=== PATIENT | female | born 1990 | race Caucasian/White ===

== ENCOUNTER 2020-12-04 11:03 | Emergency (ER) | payer OTHER ==
[~2020-12-04] VITALS: Ht 157.5 cm; Wt 59.1 kg
[2020-12-04 11:14] VITALS: BP 121/71
[2020-12-04] MEDS ORDERED: MUPI22OI2 TP (11:38)
--- NOTE | 2020-12-04 11:38 | PHYS DOC ---
Past History Additional Past Medical Histor: tetralogy of fallot, cleft pallet Past Surgical History: Other Additional Past Surgical Histo: cleft pallet, pulmonary valve, liver adenoma Smoking: Non-smoker Alcohol Use: Rarely Drug Use: None General Adult EDM: Chief Complaint: BURN/SMOKE INHALATION HPI: HPI: 30-year-old female presents with report of burn to left distal wrist with large blister which occurred last night after patient got some hot cheese on it from a pizza as she was microwaving. Patient reports immediately getting the cheese removed and placing the wrist wrist under some cold water. Patient reports this morning woke up with large blister and significant pain. Patient reports last tetanus booster greater than 5 years ago. Review of Systems: Review of Systems: Constitutional: Denies fever or chills Musculoskeletal: Reports pain to left anterior wrist Integument: Reports left wrist anterior burn with blistering Neurologic: Denies headache Complete systems were reviewed and found to be within normal limits, except as documented in this note. Current Medications: Current Meds: Current Medications Medications (Trade) Dose Ordered Sig/Delvis Start Time Stop Time Status Last Admin Dose Admin Diphtheria/ Pertussis/Tetanus Vacc (ADACEL TDap SYRINGE) 0.5 ml ONCE ONCE 12/04/20 11:45 12/04/20 11:46 UNV Neomycin/ Polymyxin/ Bacitracin (Triple Antibiotic Ointment) 1 pkt 1X ONCE 12/04/20 11:45 12/04/20 11:46 UNV Allergies: Allergies: Allergies Coded Allergies Type Severity Reaction Last Updated Verified Sulfa (Sulfonamide Antibiotics) Allergy Unknown 12/04/20 Yes Physical Exam: PE: Constitutional: Well developed, well nourished, no acute distress, non-toxic appearance HENT: Normocephalic, atraumatic Eyes: Conjunctiva normal, no discharge Neck: Normal range of motion, supple Lungs & Thorax: No respiratory distress, equal chest rise and fall Skin: Warm, dry, 4cm x 2cm area of partial 2nd degree burn with 1cm serous filled blister to distal anterior wrist Extremities: No tenderness, ROM intact, no edema Neurologic: Alert and oriented X 3, no focal deficits noted Psychologic: Affect normal, judgment normal Current Patient Data: Vital Signs: Vital Signs Date Time Temp Pulse Resp B/P (MAP) Pulse Ox O2 Delivery O2 Flow Rate FiO2 12/04/20 11:14 98.1 100 18 121/71 (88) 98 Room Air EKG: EKG: [] Radiology/Procedures: Radiology/Procedures: [] Heart Score: C/O Chest Pain: N/A Course & Med Decision Making: Course & Med Decision Making Patient presents with HPI and physical exam consistent for left anterior wrist partial-thickness second-degree burn. Tetanus updated. Wound cleaned and dressed. Empiric antibiotic ointment applied. Patient stable for discharge with outpatient follow-up with PCP. Discussed findings and plan with patient and mother, who acknowledge understanding and agreement. Dragon Disclaimer: Dragon Disclaimer: This electronic medical record was generated, in whole or in part, using a voice recognition dictation system. Departure Departure: Impression: Primary Impression: Second degree burn of forearm Qualified Codes: T22.212A - Burn of second degree of left forearm, initial encounter Disposition: HOME / SELF CARE / HOMELESS Condition: STABLE Referrals: RADHA SCHAFERP-C (PCP) Patient Instructions: Burn Care, [id number], Second-Degree Burn Additional Instructions: Use over the counter Tylenol and Ibuprofen/Naproxen as needed for pain or discomfort. Clean wound daily with soap and water. Use prescribed antibiotic ointment with each dressing change. Scripts Mupirocin (MUPIROCIN) 22 Gm Oint...g. 1 JYOTSNA TP TID for Burn, #15 GM Prov: ARTURO ALEGRIA DO 12/04/20 ARTURO ALEGRIA DO Dec 04, 2020 11:38
[2020-12-04] MEDS ORDERED: NEOMY/BACITR/POLYMYXIN OINT PACKET. TP ONE (11:45)
[2020-12-04] MEDS ORDERED: DIPH,PERTUSS(ACELL),TET VAC/PF 0.5 ML SYRINGE. VAX IM ONE (11:45)
== END 2020-12-04 12:06 | disposition home or self-care (01) ==
LOC: ER 11:03
DX: T22.212A Burn of second degree of left forearm, initial encounter (principal); X08.8XXA Exposure to other specified smoke, fire and flames, initial encounter; Y93.89 Activity, other specified; Y92.89 Other specified places as the place of occurrence of the external cause; Y99.8 Other external cause status
CPT/HCPCS: 16020; 90471; 90715; 99283-25

== ENCOUNTER → 2021-05-07 | Outpatient (CLI) | payer OTHER ==
[~2021-05-07] MED LIST: MUPI22OI2 TP
--- NOTE | 2021-05-07 16:03 | RAD ---
EXAM: Soft tissue ultrasound, left axilla. HISTORY: Left axillary lymphadenopathy on prior studies. COMPARISON: None. FINDINGS: Sonographic evaluation of the left axilla was performed. One lymph node measures 8 x 7 x 7 mm. There is a fatty hilus and a mildly prominent cortex. No enlarg ed nodes are seen. IMPRESSION: 1. One subcentimeter node is most likely benign. No clearly suspicious finding. Correlate for the sit e of concern. Electronically signed by: Margaret Cesar MD (05/07/2021 4:01 PM) [facility]
== END ==
LOC: US 11:07
PROVIDERS: ATTEND Family Medicine
DX: R59.0 Localized enlarged lymph nodes (principal)
CPT/HCPCS: 76881